=== PATIENT | male | born 1995 | race African-American/Black ===

== ENCOUNTER 2023-08-25 14:11 | Emergency (ER) | payer OTHER ==
[~2023-08-25] VITALS: Ht 177.8 cm; Wt 84.1 kg
[2023-08-25 14:25] VITALS: TEMP 98.2
[2023-08-25] MEDS: KETOROLAC TROMETHAMINE 30 MG/ML VIAL IM ONE (15:08)
[2023-08-25 15:29] LABS: BASOPHILS % (AUTO) 0.3 % (0.0-2.0); EOSINOPHILS % (AUTO) 0.2 % (1.0-6.0); HEMATOCRIT 41.6 % (41-53); HEMOGLOBIN 13.4 g/dL (13.5-17.5); LYMPHOCYTES # (AUTO) 0.6 K/uL (1.0-4.8); MEAN CORPUSCULAR HEMOGLOBIN 26.8 pg (26.0-34.0); MEAN CORPUSCULAR HGB CONC 32.2 G/dL (31.0-37.0); MEAN CORPUSCULAR VOLUME 83 fL (80-100); MONOCYTES % (AUTO) 9.9 % (2.0-9.0); NEUTROPHILS # (AUTO) 8.6 K/uL (1.8-7.7); NEUTROPHILS % (AUTO) 83.6 % (40.0-70.0); RED CELL DISTRIBUTION WIDTH 14.5 % (11.5-14.5); WHITE BLOOD COUNT (AUTO) 10.3 K/uL (4.5-11.0)
[2023-08-25 15:49] LABS: ERYTHROCYTE SEDIMENTATION RATE 22 MM/HR (0-15)
[2023-08-25 16:12] LABS: PLATELET COUNT (AUTO) 240 K/uL (150-450)
[2023-08-25 16:16] LABS: ANION GAP 9 mmol/L (8-16); CALCIUM, TOTAL 8.8 mg/dL (8.8-10.5); CARBON DIOXIDE 28 mmol/L (22-29); CHLORIDE 102 mmol/L (98-107); CREATININE 0.76 mg/dL (0.60-1.30); GLOMERULAR FILTR. RATE CALC > 60 mL/min (>60); GLUCOSE,RANDOM 81 mg/dL (70-110); POTASSIUM 4.2 mmol/L (3.5-5.1); SODIUM SERUM 139 mmol/L (136-145); UREA NITROGEN, BLOOD 14 mg/dL (7-18)
[2023-08-25 16:26] LABS: URIC ACID 5.7 mg/dL (2.6-7.2)
[2023-08-25 18:00] VITALS: BP 113/47; PULSE 82; RESP 20
[2023-08-25] MEDS ORDERED: IBUP-1492 PO (20:22)
== END 2023-08-25 20:58 | disposition home or self-care (01) ==
LOC: EMS 14:11
DX: S96.812A Strain of other specified muscles and tendons at ankle and foot level, left foot, initial encounter (principal); W01.0XXA Fall on same level from slipping, tripping and stumbling without subsequent striking against object, initial encounter; Y93.89 Activity, other specified; Y92.89 Other specified places as the place of occurrence of the external cause; Y99.8 Other external cause status
CPT/HCPCS: 99284; 80048; 84550; 85025; 85651; 36415; 73590; 73610; 96372; J1885; 29540